=== PATIENT | female | born 1960 | race Caucasian/White ===

== ENCOUNTER 2017-08-23 11:38 | Emergency (ER) | payer MEDICAID ==
[~2017-08-23] VITALS: Ht 157.5 cm; Wt 86.2 kg
[2017-08-23 11:43] VITALS: BP 164/75
--- NOTE | 2017-08-23 11:55 | NUR ---
57f bib self with c/o rash to crystal upper and lower extremities, torso, and back x 4 days with pruritis. No swelling noted to face, lips, or tongue. Patient denies any sob or chest pain. RR are even and unlabored. Patient changed into gown. Awaiting er md hollis. All needs met at this time. Will continue to monitor.
--- NOTE | 2017-08-23 12:06 | NUR ---
er fostella by bedside examining patient
[2017-08-23] MEDS ORDERED: hydrOXYzine HCL 25 MG TAB PO ONE (12:15)
[2017-08-23] MEDS ORDERED: DEXAMETHASONE 10 MG/ML VIAL IM ONE (12:15)
[2017-08-23] MEDS ORDERED: diphenhydrAMINE 50 MG/ML VIAL IM ONE (12:15)
[2017-08-23 13:20] VITALS: BP 150/84
--- NOTE | 2017-08-23 13:20 | NUR ---
Patient discharged with v/s stable. Written and verbal after care instructions given and explained. Patient alert, oriented and verbalized understanding of instructions. Ambulatory with steady gait. All questions addressed prior to discharge. ID band removed. Patient advised to follow up with PMD. Rx of Atarax and Lisinopril and Atarax given. Patient educated on indication of medication including possible reaction and side effects. Opportunity to ask questions provided and answered.
== END 2017-08-23 13:20 | disposition home or self-care (01) ==
LOC: MED 11:38
DX: L27.0 Generalized skin eruption due to drugs and medicaments taken internally (principal); I10 Essential (primary) hypertension; E11.9 Type 2 diabetes mellitus without complications; Z76.0 Encounter for issue of repeat prescription
CPT/HCPCS: 96372; 99284; J1100; J1200